=== PATIENT | male | born 1980 | race Caucasian/White ===

== ENCOUNTER 2022-04-14 00:06 | Emergency (ER) | payer MEDICAID, SELFPAY ==
[2022-04-14 00:48] VITALS: BP 147/82; PULSE 90; RESP 18; TEMP 36.7; O2SAT 95
--- NOTE | 2022-04-14 00:57 | NUR.NOTE ---
Nursing Note: pt was not triaged at time of registration because he needed a smoke,remained outside with officer. Pt cooperative at all time.
[2022-04-14 01:34] LABS: Abs Immature Grans 0.02 10^3/uL (0.0-0.06); Absolute Basophil Count 0.02 10^3/uL (0.0-0.2); Absolute Eosinophil Count 0.04 10^3/uL (0.0-0.7); Absolute Lymphocyte Count 1.84 10^3/uL (1.2-3.4); Absolute Neutrophil Count 3.87 10^3/uL (1.2-6.7); Basophils % 0.3; Eosinophils % 0.6; HCT 47.8 % (40.0-50.0); Immature Grans % 0.3; Lymphocytes % 27.9; MCH 29.1 pg (27.0-33.0); MCHC 33.5 % (32.0-36.0); MCV 87 fL (80-95); MPV 9.8 fL (8.0-11.0); Monocytes % 12.1; Neutrophils % 58.8; Platelet Count 227 10^3/uL (130-400); RBC 5.49 10^6/uL (4.36-5.78); RDW 11.9 % (11.8-14.1); RDW-SD 38.5 fL; WBC 6.59 10^3/uL (4.4-10.8)
[2022-04-14 01:50] LABS: *AMPHETAMINES SCREEN URINE Negative (Negative); *BARBITURATES SCREEN URINE Negative (Negative); *BENZODIAZEPINES SCREEN URINE Negative (Negative); Cannabinoids THC Positive (Negative); Cocaine Screen,Urine Negative (Negative); METHADONE URINE SCREEN Negative (Negative); OPIATES URINE SCREEN Negative (Negative)
[2022-04-14 01:51] LABS: Tricyclic Antidepressants Negative (Negative)
[2022-04-14 02:02] LABS: ALT 25 U/L (16-63); AST 18 U/L (15-37); Albumin 4.2 g/dL (3.4-5.0); Alkaline Phosphatase 67 U/L (46-116); Anion Gap 13.1 mmol/L (3-11); BUN 7 mg/dL (7-18); Bilirubin, Total 0.3 mg/dL (0.2-1.0); CO2 25.9 mmol/L (21.0-32.0); CREATININE 0.8 mg/dL (0.70-1.30); Calcium 8.9 mg/dL (8.5-10.1); Chloride 106 mmol/L (98-107); ETHANOL BLOOD 196.3 mg/dL (<10); Estimated GFR 114.02 (mL/min/1.73m2); Glucose 108 mg/dL (74-106); Potassium 3.8 mmol/L (3.5-5.1); Sodium 145 mmol/L (136-145); TSH (W/Ref FT4) 2.59 uIU/mL (0.36-3.74); Total Protein 7.8 g/dL (6.4-8.2)
[2022-04-14 02:06] LABS: Salicylate < 2.8 mg/dL (<2.8)
[2022-04-14 02:07] LABS: Acetaminophen < 2 ug/mL (10-30)
--- NOTE | 2022-04-14 03:19 | ED.GENADUL_ITS ---
Discharge Plan Discharge Details Chief Complaint: PsychEval Primary Care Provider: Shalonda Acosta ED Provider: Nathan Beard Medical Decision Making 41-year-old male who is new to the area who denies any focal past medical history but does state that he does have a history of mental health disorders which he states he would rather not have a specific label on. However he does state that he suspects that I have disassociative disorder, ADD, and stuff like that. He states that he does live alone and he drinks fairly often. He denies any history of withdrawal from alcohol though. A safety call was made for the patient today, mental health contacted the patient, and he promptly hung up on them, but states he did call back later to apologize. State police came to the house to check on the patient, and the patient was brought to the ER for further evaluation. Patient is here voluntarily. He denies homicidal or suicidal ideations but does state that his drinking seems to be fairly destructive. No other complaints at this time. He denies any IV or illicit drug use. Physical exam demonstrates a thin but otherwise well-appearing male. No acute distress. Does appear questionably mildly intoxicated. We will medically clear, contact mental health for further evaluation. Patient otherwise appears notably stable. He is here voluntarily. 8:21 AM Patient is medically cleared, patient is now clinically sober. The patient is able to speak clearly. There is no demonstration of any slurring of speech. There is evidence of clear decision making capacity. Patient is able to ambulate well without any difficulty. There are no signs of ataxia or stumbling motions. Patient will be signed out to my colleagues for follow-up on mental health assessment HPI General Date/Time Provider Initiated Documentation: 04/14/22 00:15 . HPI Narrative: 41-year-old male who is new to the area who denies any focal past medical history but does state that he does have a history of mental health disorders which he states he would rather not have a specific label on. However he does state that he suspects that I have disassociative disorder, ADD, and stuff like that. He states that he does live alone and he drinks fairly often. He denies any history of withdrawal from alcohol though. A safety call was made for the patient today, mental health contacted the patient, and he promptly hung up on them, but states he did call back later to apologize. State police came to the house to check on the patient, and the patient was brought to the ER for further evaluation. Patient is here voluntarily. He denies homicidal or suicidal ideations but does state that his drinking seems to be fairly destructive. No other complaints at this time. He denies any IV or illicit drug use. General Stated Complaint: PsychEval CARLOS: 2 Review of Systems All systems reviewed & are unremarkable except as noted in HPI and below PFSH Social History Smoking/Tobacco Use Status: Current every day Tobacco Type: cigarettes Smoking risk assessment performed?: Yes Alcohol Intake: current Alcohol Intake frequency: 3 or more drinks per day Alcohol type: beer Drug use: Occasionally Substance use type: marijuana Do you feel safe at home: Yes Exam Narrative Exam Narrative: 1.Const: Well-nourished, Well-developed, appearing stated age 2.Eyes: PERRL, no conjunctival injection, and symmetrical lids. 3.ENT: Atraumatic external nose and ears. Moist MM. Neck: Symmetric, trachea midline, No thyromegaly. 4.CVS: +S1/S2, No murmurs or gallops. Peripheral pulses 2+ and equal in all extremities. Brisk capillary refill in all extremities. 5.RESP: Unlabored respiratory effort. Clear to auscultation bilaterally. No wheezes rales or rhonchi 6.GI: Soft, Nontender/Nondistended, No hepatosplenomegaly. No guarding or rebou nd. 7.MSK: Normocephalic/Atraumatic, Extremities w/o deformity or ttp No cyanosis or clubbing, Normal movement of all extremities 8.Skin: Warm, Dry. No rashes or lesions. Small picking lesions are noted on his skin. 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 Sensation grossly intact, no focal neurologic deficits. 10.Psych: (AAO) x3. Appropriate mood and affect Course Vital Signs Vital signs: Vital Signs Temperature 36.7 C 04/14/22 00:48 Pulse 90 04/14/22 00:48 Respiratory Rate 18 04/14/22 00:48 Blood Pressure 147/82 H 04/14/22 00:48 Pulse Oximetry 95 04/14/22 00:48 Temperature 36.7 C 04/14/22 00:48 Temperature Source Oral 04/14/22 00:48 Pulse 90 04/14/22 00:48 Respiratory Rate 18 04/14/22 00:48 Respiratory Effort Normal 04/14/22 01:05 Blood Pressure 147/82 H 04/14/22 00:48 Blood Pressure Position Sitting 04/14/22 00:48 Pulse Oximetry 95 04/14/22 00:48 Oxygen Delivery Method Room Air 04/14/22 00:48 Oxygen Flow Rate 0 04/14/22 00:48 Lab/Test Results Lab/Test Results: Laboratory Tests Range/Units 04/14/22 04/14/22 04/14/22 01:28 01:28 01:28 WBC (4.4-10.8) 10^3/uL 6.59 RBC (4.36-5.78) 10^6/uL 5.49 Hgb (13.5-17.5) g/dL 16.0 Hct (40.0-50.0) % 47.8 MCV (80-95) fL 87 MCH (27.0-33.0) pg 29.1 MCHC (32.0-36.0) % 33.5 RDW (11.8-14.1) % 11.9 Plt Count (130-400) 10^3/uL 227 MPV (8.0-11.0) fL 9.8 Immature Gran % 0.3 Neutrophils % 58.8 Lymphocytes % 27.9 Monocytes % 12.1 Eosinophils % 0.6 Basophils % 0.3 Nucleated RBC % (0.0-0.3) % 0.0 Absolute Neutrophils (1.2-6.7) 10^3/uL 3.87 Absolute Lymphocytes (1.2-3.4) 10^3/uL 1.84 Absolute Monocytes (0.1-0.8) 10^3/uL 0.80 Absolute Eosinophils (0.0-0.7) 10^3/uL 0.04 Absolute Basophils (0.0-0.2) 10^3/uL 0.02 Sodium (136-145) mmol/L 145 Potassium (3.5-5.1) mmol/L 3.8 Chloride (98-107) mmol/L 106 Carbon Dioxide (21.0-32.0) mmol/L 25.9 Anion Gap (3-11) mmol/L 13.1 H BUN (7-18) mg/dL 7 Creatinine (0.70-1.30) mg/dL 0.8 Est GFR (CKD-EPI 2020) (mL/min/1.73m2) 114.02 Glucose (74-106) mg/dL 108 H Calcium (8.5-10.1) mg/dL 8.9 Total Bilirubin (0.2-1.0) mg/dL 0.3 AST (15-37) U/L 18 ALT (16-63) U/L 25 Alkaline Phosphatase (46-116) U/L 67 Total Protein (6.4-8.2) g/dL 7.8 Albumin (3.4-5.0) g/dL 4.2 TSH (0.36-3.74) uIU/mL 2.59 Salicylates (<2.8) mg/dL < 2.8 Urine Opiates Screen (Negative) Urine Methadone Screen (Negative) Acetaminophen (10-30) ug/mL < 2 Ur Barbiturates Screen (Negative) Ur Tricyclics Screen (Negative) Ur Amphetamines Screen (Negative) U Benzodiazepines Scrn (Negative) Urine Cocaine Screen (Negative) Ur THC Screen (Negative) Ethyl Alcohol (<10) mg/dL 196.3 H Range/Units 04/14/22 01:28 WBC (4.4-10.8) 10^3/uL RBC (4.36-5.78) 10^6/uL Hgb (13.5-17.5) g/dL Hct (40.0-50.0) % MCV (80-95) fL MCH (27.0-33.0) pg MCHC (32.0-36.0) % RDW (11.8-14.1) % Plt Count (130-400) 10^3/uL MPV (8.0-11.0) fL Immature Gran % Neutrophils % Lymphocytes % Monocytes % Eosinophils % Basophils % Nucleated RBC % (0.0-0.3) % Absolute Neutrophils (1.2-6.7) 10^3/uL Absolute Lymphocytes (1.2-3.4) 10^3/uL Absolute Monocytes (0.1-0.8) 10^3/uL Absolute Eosinophils (0.0-0.7) 10^3/uL Absolute Basophils (0.0-0.2) 10^3/uL Sodium (136-145) mmol/L Potassium (3.5-5.1) mmol/L Chloride (98-107) mmol/L Carbon Dioxide (21.0-32.0) mmol/L Anion Gap (3-11) mmol/L BUN (7-18) mg/dL Creatinine (0.70-1.30) mg/dL Est GFR (CKD-EPI 2020) (mL/min/1.73m2) Glucose (74-106) mg/dL Calcium (8.5-10.1) mg/dL Total Bilirubin (0.2-1.0) mg/dL AST (15-37) U/L ALT (16-63) U/L Alkaline Phosphatase (46-116) U/L Total Protein (6.4-8.2) g/dL Albumin (3.4-5.0) g/dL TSH (0.36-3.74) uIU/mL Salicylates (<2.8) mg/dL Urine Opiates Screen (Negative) Negative Urine Methadone Screen (Negative) Negative Acetaminophen (10-30) ug/mL Ur Barbiturates Screen (Negative) Negative Ur Tricyclics Screen (Negative) Negative Ur Amphetamines Screen (Negative) Negative U Benzodiazepines Scrn (Negative) Negative Urine Cocaine Screen (Negative) Negative Ur THC Screen (Negative) Positive A Ethyl Alcohol (<10) mg/dL PAWSS Have you Been Recently Intoxicated or Drunk Within the Last 30 days?: Yes Have you Ever Experienced Previous Episodes of Alcohol Withdrawal?: No Have you ever Experienced Withdrawal Seizures?: No Have you ever Experienced Delirium Tremens(DT)s?: No Have you ever undergone Alcohol Rehabilitation Treatment (i.e, inpt ot outpatient treatment programs)?: Yes Have you ever Experienced Blackouts?: No Have you ever Combined Alcohol with other Downers within the last 90 days?: No Have you ever Combined Alcohol with any other Substance of Abuse during the last 90 days?: No Positive Blood Alcohol level on Presentation? [PCS.BAL]: Yes Evidence of Increased Autonomic Activity (i.e. HR>120, tremor, sweating, agitation, nausea)?: No Result: 3
--- NOTE | 2022-04-14 08:08 | PDOC.MHCN_ITS ---
Date of service: 04/14/22 Time of Service: 08:08 PHQ-9 Over the last 2 weeks, how often have you been bothered by any of the following problems? 1. Little interest or pleasure in doing things: nearly every day 2. Feeling down, depressed, or hopeless: more than half the days 3. Trouble falling or staying asleep, or sleeping too much: nearly every day 4. Feeling tired or having little energy: more than half the days 5. Poor appetite or overeating: nearly every day (Ct reports he doesn't usually eat more than once a day.) 6. Feeling bad about yourself - or that you are a failure or have let yourself and your family down: nearly every day 7. Trouble concentrating on things, such as reading the newspaper or watching television: more than half the days 8. Moving or speaking so slowly that other people could have noticed? - Or the opposite - being so fidgety or restless that you have been moving around a lot more than usual: several days 9. Thoughts that you would be better off or of hurting yourself in some way: more than half the days Total score: 21 If you checked off any problems, how difficult have these problems made it for you to do your work, take care of things at home, or get along with other people?: very difficult PHQ-9 Results: Positive Source: Developed by Drs. Alvaro Gandhi, Loly Acuña, Narayan Villatoro and colleagues, with an educational ryland from [employer]. Suicide Severity Rate CSSRS Have you wished you were or wished you could go to sleep and not wake up?: Yes Have you actually had any thoughts of killing yourself?: Yes CSSRS2 Have you been thinking about how you might do this?: Yes Have you had these thoughts and had some intention of acting on them?: No Have you started to work out or worked out the details of how to kill yourself? Do you intend to carry out this plan?: No CSSRS3 Have you ever done anything, started to do anything or prepared to do anything to end your life?: No CSSRS4 Was this within the past three months?: No Screening Score Total Score: 4 Screening: Positive Mental Health Emergency Note Release [facility] release signed:: No Reason for Visit Ct reported he was struggling with his mental health and alcohol abuse. In the last 2 weeks has the pt presented for ES prior to today?: No Client Information Client is: New Well Housed: Yes Non Suicidal Self Injury Current: Yes, Client reports he constantly picks his skin and that he used to cut himself. History: yes, Client stated he used to engage in cutting but it has been years since doing that. Safety Risk/Harm to Self or Others Current Ideation to Harm Self or Others: No Risk: Does risk to harm exist?: No Risk: Moderate Risk Duty to warn indicated: No Asssessment/Mental Status Appearance: Disheveled and Poor hygiene Attitude: Cooperative Behavior: Unremarkable Speech: Normal Affect: Flat Mood: Sad and Anxious Thought process: Unremarkable Hallucinations: No evidence Delusions: No evidence Attention: Unremarkable Perception: Not impaired Orientation: Fully orientated Memory: Intact Insight: Fair Judgement: Fair Neurovegetative Symptoms Sleep: Decrease Appetitie: Decrease Interests: Decrease Energy: Decrease Substance Use: ETOH dependence Do you use nicotine?: Yes Have you used substances in the last 7 days?: yes, Client reports he uses marijuana; depending on if he has it he will use it everyday, if not it may be months. Additional Issues: Assaultive/Threatening Behavior: No Medical Concerns: Yes Client engaged in active self harm w/weapon: No Threatening to run away: No Child reported abuse/neglect: No Voluntarily presenting for services: Yes Domestic violence is a concern: No Extreme Psychosis or extreme behavior is present: No Impression Blayne was brought to the ED by [facility] due to erratic behavior, intoxication and suicidal statements. When Blayne arrived to the ED he was somewhat all over the place in terms of his thought process per the provider. His assessment was delayed until he was sober. This morning, Blayne was able to recall all his interactions with this clinician the previous afternoon, showing somewhat good recall and insight. This cilent stated that he has been struggling with his mental health for a while and has had fleeting thoughts of suicide since he was 12 years old, acting on them twice throughout his life (both by overdose). This client reported he has been to [facility] previously, about 4 years ago due to declining mental health. This client has an alcohol dependence and reports he has been abusing it for 3.5-4 years. Blayne stated he drinks anywhere from 12-16 beers roughly every other night, but most weeks its nightly. This client stated he doesn't want to end his life by suicide but feels he needs additional support with his mental health and alcohol abuse. This client had some interest in crisis beds and level care but wants to figure out how to navigate doing so around work. Client requested meeting with a recovery operator helper from [facility] as well, to see what resources were available to him in that sphere. Resources Reosurces reviewed and given:: Crisis Bed and HS Plan/Disposition Recommended Disposition: Crisis bed, No and Hospitalization No. Reports/communication Outcome discussed with: ED/Personnel
--- NOTE | 2022-04-14 17:34 | MHPN_ITS ---
Date of service: 04/14/22 Time of Service: 17:34 PHQ-9 Over the last 2 weeks, how often have you been bothered by any of the following problems? 1. Little interest or pleasure in doing things: nearly every day 2. Feeling down, depressed, or hopeless: more than half the days 3. Trouble falling or staying asleep, or sleeping too much: nearly every day 4. Feeling tired or having little energy: more than half the days 5. Poor appetite or overeating: nearly every day (Ct reports he doesn't usually eat more than once a day.) 6. Feeling bad about yourself - or that you are a failure or have let yourself and your family down: nearly every day 7. Trouble concentrating on things, such as reading the newspaper or watching television: more than half the days 8. Moving or speaking so slowly that other people could have noticed? - Or the opposite - being so fidgety or restless that you have been moving around a lot more than usual: several days 9. Thoughts that you would be better off or of hurting yourself in some way: more than half the days Total score: 21 If you checked off any problems, how difficult have these problems made it for you to do your work, take care of things at home, or get along with other people?: very difficult PHQ-9 Results: Positive Source: Developed by Drs. Alvaro Gandhi, Loly Acuña, Narayan Villatoro and colleagues, with an educational ryland from [employer]. Suicide Severity Rate CSSRS Have you wished you were or wished you could go to sleep and not wake up?: Yes Have you actually had any thoughts of killing yourself?: Yes CSSRS2 Have you been thinking about how you might do this?: Yes Have you had these thoughts and had some intention of acting on them?: No Have you started to work out or worked out the details of how to kill yourself? Do you intend to carry out this plan?: No CSSRS3 Have you ever done anything, started to do anything or prepared to do anything to end your life?: No CSSRS4 Was this within the past three months?: No Screening Score Total Score: 4 Screening: Positive Mental Health Emergency Note Release [facility] release signed:: Yes Reason for Visit Client presented to the ED on the evening of 3.6.23 intoxicated and looking for help with his ETOH use/abuse. He was initially assessed by MELISSA Hathaway who referred him to [facility] as he was not interested in in an inpatient referral. [facility] also reported to this clinician that he was not interested in a rehab but offered to be supportive to him for the next 10 days. This assessment was completed face to face. In the last 2 weeks has the pt presented for ES prior to today?: Unknown Client Information Client is: New Well Housed: Yes Non Suicidal Self Injury Current: Yes, Picks at skin History: yes, same as above Safety Risk/Harm to Self or Others Current Ideation to Harm Self or Others: No Risk: Does risk to harm exist?: No Risk: Low Risk Duty to warn indicated: No Asssessment/Mental Status Appearance: Poor hygiene (has only showered 4 times since Thanksgi ) Attitude: Cooperative and Guarded Behavior: Repetitive movements (Rubs his head and hair frequently ) Speech: Soft Affect: Cogruent with mood Mood: Stressed, Depressed and Anxious Thought process: Circumstational Hallucinations: No Delusions: No Attention: Unremarkable Perception: Not impaired Orientation: Fully orientated Memory: Intact Insight: Good Judgement: Fair Neurovegetative Symptoms Sleep: Decrease Appetitie: Decrease Interests: Decrease Energy: Decrease Libido: Not applicable Substance Use: ETOH dependence Do you use nicotine?: No Have you used substances in the last 7 days?: yes, ETOH Additional Issues: Assaultive/Threatening Behavior: No Medical Concerns: No Client engaged in active self harm w/weapon: No Threatening to run away: No Child reported abuse/neglect: No Voluntarily presenting for services: No Domestic violence is a concern: No Extreme Psychosis or extreme behavior is present: No Impression Client is a 41 year old, single, male who lives independently in a cabin in the [facility]. Client reports that he drinks heavily daily and that he is struggling with his mental health. Client stated that he has issues with his anger, social settings, poor sleep and appetite (limited food options as well noting primarily cheese sandwiches) He has been involved with the [facility] and was encouraged to continue with them. He previously had been [facility] through his PCP however he stopped seeing her. He reported that when he was at [facility] he felt is was unhelpful because he felt he was put on medications and pushed out the door. Client presents sitting up in his bed this morning and his hair is oily and has not been washed in some time. Client reported that he does not have running water in his cabin. His speech is rapid and circumstantial often. He has a hard time stringing his thoughts together as well. Client believes that he is diagnosed with ADD since childhood and did do a trial of ADD meds however, he felt like that made him manic. He has had some success on other meds but not for long periods of time. This has been frustrating for him. It is this clinician's professional observation and opinion that he client may have a bipolar diagnosis and he appears to be in a manic type episode mixed with an on going depression. He disagrees with this observation when discussed. Client also isolates himself to his cabin with the exception of store runs and medical appointments, a couple of friends he will visit on occasion and work. It appears the client has not committed to treatment and especially not intensive treatment at this time and does not meet criteria for an involuntary hold. Resources Reosurc reviewed and given:: Community therapist Plan/Disposition Recommended Disposition: Therapy. Plan: Client engaged in opening paperwork and a safety plan. Client will be discharged home to follow up with supports already in place. He was made aware of [facility] and [facility] should he need additional supports and services. Person reported agreement to plan: Yes Reports/communication Outcome discussed with: ED/Personnel
== END 2022-04-14 11:34 | disposition home or self-care (01) ==
PROVIDERS: Student in an Organized Health Care Education/Training Program; Emergency Provider Emergency Medicine; PCP Nurse Practitioner Family
DX: F10.920 Alcohol use, unspecified with intoxication, uncomplicated (principal); Z04.6 Encounter for general psychiatric examination, requested by authority; Y90.6 Blood alcohol level of 120-199 mg/100 ml
CPT/HCPCS: 36415; 80053; 80307; 99283; 99285; 80320; 80329; 84443; 85025

== ENCOUNTER 2022-04-16 18:37 | Emergency (ER) | payer MEDICAID, SELFPAY ==
[2022-04-16 18:49] VITALS: BP 125/87; PULSE 91; RESP 18; TEMP 36.8; O2SAT 96
--- NOTE | 2022-04-16 19:42 | ED.GENADUL_ITS ---
Discharge Plan Disposition Condition: Stable Discharge Details Chief Complaint: PsychEval Clinical Impression: Depression Primary Care Provider: Shalonda Acosta ED Provider: Asael Garcia Home Meds and New Rx's Prescriptions: No Action No Known Home Meds Medical Decision Making 41 yo male with hx of alcohol abuse who comes in with [facility] and mental health worker with concerns for his safety. He has a chronic issue with alcohol abuse and was seen in the ed 2 days ago with depression and vague thoughts of SI while intoxicated, when sober was cleared to go home. He apparently has been drinking alcohol and [facility] did not feel he was safe at home so brought him here. HE is caox4 though does have smell of alcohol on his breath and admits to drinking tonight. He denies other substance use other than marijuana. He denies attempts at actually trying to harm himself. HE has no focal motor deficits and no signs of trauma. He had reassuring screening labs on 04/14 and do not feel they need to be repeated, will check an alcohol level and have nkhs speak to him when sober. Differential Diagnosis Differential Diagnosis: alcohol intoxication, depression HPI General Mode of arrival: ambulatory . Date/Time Provider Initiated Documentation: 04/16/22 19:01 . Limitations to Documentation: no limitations . Information obtained by: patient and police . History of Present Illness 41 year old M presents to the emergency department with the chief complaint of alcohol abuse, described as moderate, and it has been constant. No relieving factors improve symptom(s), No exacerbating factors reported . Patient did receive the following treatments prior to arrival, none Related Data Home Medications Medication Instructions Recorded Confirmed Unknown [No Known Home Meds] 04/16/22 04/16/22 Allergies Allergy/AdvReac Type Severity Reaction Status Date / Time No Known Allergies Allergy Unverified 04/16/22 18:53 General Stated Complaint: PsychEval CARLOS: 2 Review of Systems All systems reviewed & are unremarkable except as noted in HPI and below Constitutional Constitutional: Denies chills, Denies fever(s) and Denies weakness Eyes Eyes: Denies loss of vision Cardiovascular Cardiovascular: Denies chest pain and Denies dyspnea Respiratory Respiratory: Denies cough and Denies dyspnea Gastrointestinal Gastrointestinal: Denies abdominal pain, Denies nausea and Denies vomiting Integumentary/Breasts Skin/Breast: Denies rash Neurologic Neurologic: Denies loss of vision and Denies weakness PFSH All Active Problems (Updated 04/16/22 @ 19:50 by Asael Garcia MD) Depression (Chronic) Social History Smoking/Tobacco Use Status: Current every day Tobacco Type: cigarettes Smoking risk assessment performed?: Yes Alcohol Intake: current Alcohol Intake frequency: 3 or more drinks per day Alcohol type: beer Drug use: Occasionally Substance use type: marijuana Exam Const General: no acute distress Orientation: alert HENMT Head: normal to inspection Ears: external ears normal General nose exam: external nose normal Mouth: moist mucous membranes Eyes General: appearance normal, both eyes and all related structures Neck Neck: normal visual inspection Resp Effort & Inspection: normal respiratory effort and able to speak in complete sentences Cardio Rate: regular rate Skin General skin exam: no rashes or lesions noted Neuro General: patient alert and patient oriented x3 Extrem General: normal to inspection Psych Appearance: disheveled Speech and Movement: agitated Course Vital Signs Vital signs: Vital Signs Temperature 36.8 C 04/16/22 18:49 Pulse 91 H 04/16/22 18:49 Respiratory Rate 18 04/16/22 18:49 Blood Pressure 125/87 04/16/22 18:49 Pulse Oximetry 96 04/16/22 18:49 Temperature 36.8 C 04/16/22 18:49 Temperature Source Tympanic 04/16/22 18:49 Pulse 91 H 04/16/22 18:49 Respiratory Rate 18 04/16/22 18:49 Respiratory Effort Normal, Non-Labored 04/16/22 18:52 Blood Pressure 125/87 04/16/22 18:49 Pulse Oximetry 96 04/16/22 18:49 Oxygen Delivery Method Room Air 04/16/22 18:49 Oxygen Flow Rate 0 04/16/22 18:49 PAWSS Have you Been Recently Intoxicated or Drunk Within the Last 30 days?: Yes Have you Ever Experienced Previous Episodes of Alcohol Withdrawal?: Yes Have you ever Experienced Withdrawal Seizures?: No Have you ever Experienced Delirium Tremens(DT)s?: No Have you ever undergone Alcohol Rehabilitation Treatment (i.e, inpt ot outpatient treatment programs)?: Yes Have you ever Experienced Blackouts?: No Have you ever Combined Alcohol with other Downers within the last 90 days?: No Have you ever Combined Alcohol with any other Substance of Abuse during the last 90 days?: No Positive Blood Alcohol level on Presentation? [PCS.BAL]: Unable to Obtain Evidence of Increased Autonomic Activity (i.e. HR>120, tremor, sweating, agitation, nausea)?: No Result: 3
--- NOTE | 2022-04-16 20:01 | NUR.NOTE ---
Nursing Note: Pt left ED in police custody to detox. Dr Radha echavarria.
== END 2022-04-16 20:09 ==
PROVIDERS: Emergency Provider Emergency Medicine; PCP Nurse Practitioner Family
DX: F32.A Depression, unspecified (principal); F10.10 Alcohol abuse, uncomplicated; Y90.9 Presence of alcohol in blood, level not specified
CPT/HCPCS: 99284; 80320; 99282

== ENCOUNTER 2022-04-17 10:06 | Emergency (ER) | payer MEDICAID, SELFPAY ==
[2022-04-17] VITALS (22 sets, daily range): BP systolic 117–150; BP diastolic 65–114; PULSE 69–108; RESP 12–19; TEMP 36.7; O2SAT 97–99
--- NOTE | 2022-04-17 11:49 | PDOC.MHCN ---
Date of service: 04/17/22 Time of Service: 11:49 PHQ-9 Over the last 2 weeks, how often have you been bothered by any of the following problems? 1. Little interest or pleasure in doing things: nearly every day 2. Feeling down, depressed, or hopeless: more than half the days 3. Trouble falling or staying asleep, or sleeping too much: nearly every day 4. Feeling tired or having little energy: more than half the days 5. Poor appetite or overeating: nearly every day (Ct reports he doesn't usually eat more than once a day.) 6. Feeling bad about yourself - or that you are a failure or have let yourself and your family down: nearly every day 7. Trouble concentrating on things, such as reading the newspaper or watching television: more than half the days 8. Moving or speaking so slowly that other people could have noticed? - Or the opposite - being so fidgety or restless that you have been moving around a lot more than usual: several days 9. Thoughts that you would be better off or of hurting yourself in some way: more than half the days Total score: 21 If you checked off any problems, how difficult have these problems made it for you to do your work, take care of things at home, or get along with other people?: very difficult PHQ-9 Results: Positive Source: Developed by Drs. Alvaro Gandhi, Loly Acuña, Narayan Villatoro and colleagues, with an educational ryland from [employer]. Suicide Severity Rate CSSRS Have you wished you were or wished you could go to sleep and not wake up?: Yes Have you actually had any thoughts of killing yourself?: Yes CSSRS2 Have you been thinking about how you might do this?: Yes Have you had these thoughts and had some intention of acting on them?: No Have you started to work out or worked out the details of how to kill yourself? Do you intend to carry out this plan?: No CSSRS3 Have you ever done anything, started to do anything or prepared to do anything to end your life?: Yes CSSRS4 Was this within the past three months?: No Screening Score Total Score: 6 Screening: Positive Mental Health Emergency Note Release [facility] release signed:: No Reason for Visit Ct presented to the ED due to a decline in mental state, increased alcohol dependence & SI. Blayne reports he would like to access mental health services. In the last 2 weeks has the pt presented for ES prior to today?: Yes, presented at [facility] ED Client Information Client is: New Well Housed: Yes Non Suicidal Self Injury Current: No History: yes, Client reported he has engaged in cutting previously. Safety Risk/Harm to Self or Others Current Ideation to Harm Self or Others: Yes to self. Intent: no, has no intent. Plan: yes,has a plan. History of suicide attempt: yes,history of suicide attempt reported. Details of previous suicide attempt: Client has overdosed twice previously. Risk: Does risk to harm exist?: yes. Access to means: Yes. Types of Means: Medication. Counseling provided: Yes Risk: Moderate Risk Duty to warn indicated: No Asssessment/Mental Status Appearance: Disheveled and Poor hygiene Attitude: Cooperative Behavior: Unremarkable Speech: Normal Affect: Flat Mood: Stressed and Anxious Thought process: Racing and Tangential Hallucinations: No Delusions: No Attention: Unremarkable Perception: Not impaired Orientation: Fully orientated Memory: Intact Insight: Fair Judgement: Poor Neurovegetative Symptoms Sleep: Decrease Appetitie: Decrease Interests: Decrease Energy: Decrease Substance Use: ETOH dependence Do you use nicotine?: No Have you used substances in the last 7 days?: yes, Client reports frequent usage of marijuana when available. Additional Issues: Assaultive/Threatening Behavior: Yes Medical Concerns: No Client engaged in active self harm w/weapon: No Threatening to run away: No Child reported abuse/neglect: No Voluntarily presenting for services: Yes Domestic violence is a concern: No Extreme Psychosis or extreme behavior is present: No Impression Blayne presented to the ED due to concerns around worsening mental health, alcohol abuse and SI. This client was fairly tangential throughout the assessment, often either giving this clinician unclear/inconsistent answers to assessment questions. Blayne has been all over the place in regards to his mental health and suicidal ideation, last night stating that 98% of him wants to do it and that he has the means (To [facility] [place] [place] [employer]) but then later telling a doctor he isn't suicidal; showing poor judgement, insight and disordered thought process. Today, Blayne continued to provide contradicting reports, although he is willing to seek voluntary treatment to stabilize. For some more clarity on this ct's case, this clinician gathered information from his interactions with [facility] ES & [facility] beginning this week: On the evening of 04/13/2022, [facility] Police ([facility]) received a call from a concerned community member requesting a welfare check on Raffy. At this time, there were concerns for Raffy and his mental health. Per the complainant, Raffy was reported to be drinking heavily and operating a vehicle. [facility] requested [facility] quality control tech raw materials to reach out and attempt to make contact with the client regarding his mental health. When MELISSA Hathaway attempted to outreach to the client, the client was reported to present as paranoid and refused to speak to mental health. After being medically cleared and having been clinically sober, Raffy was assessed by [facility] MELISSA Hathaway and then MELISSA Boyer on the morning of 04/14/2022. At this time, the client denied recommended inpatient treatment and returned home on a safety plan. On 04/15/22 [facility] received another welfare check on Raffy for reports of ?self-destructive behaviors? with a history of ?self-harm attempts?. The following day 04/16/22, [facility] received a third welfare check on Raffy, requested by his PCP office. Sury Tello arrived on scene, and Raffy reported to be still struggling with his mental health and requested to be transported to [facility] via police after stating, ?I?m not well?I?m really not well?. At this time, Raffy was under the influence of alcohol, but was able to have a coherent conversation. It appears that the clients behavior and risk to self has increased over the past several days, and he does not seem to be reporting honestly. Resources Reosurces reviewed and given:: Crisis Bed and Other (Brigette Myers (Community provider Blayne was previously connected to)) Plan/Disposition Recommended Disposition: Hospitalization (Referrals will be sent shortly.) No. Plan: Client is agreeable to IP treatment. Person reported agreement to plan: Yes Reports/communication Outcome discussed with: ED/Personnel
--- NOTE | 2022-04-17 15:11 | ED.GENADUL_ITS ---
Discharge Plan Discharge Details Chief Complaint: GenMedical Primary Care Provider: Shalonda Acosta ED Provider: Dewayne Trotter Home Meds and New Rx's Prescriptions: No Action No Known Home Meds Medical Decision Making [id number]--41-year-old male presents today at the [facility] after being held overnight in [facility], seeking treatment for alcohol use disorder. Patient does have history of mental health disease but is not currently suicidal, homicidal or acutely psychotic. Of recent, patient has had erratic behavior while abusing alcohol. He recognizes this and is voluntarily here seeking treatment. Patient medically screened and I am concerned about potential alcohol withdrawal. He is not exhibiting any significant signs or symptoms of withdrawal at this time. We will maintain [facility] protocol observation. Care management is working with [facility] to develop either a safety plan for discharge and outpatient referral versus referral to [facility] for inpatient treatment. Awaiting disposition plan. I called and spoke with [facility] livestock judging coach who came in engaged with the patient. She has a previously established relationship with the patient from earlier this week. She will continue to follow and assist patient in the outpatient setting. Smart medical clearance was performed. HPI General Mode of arrival: ambulatory . Date/Time Provider Initiated Documentation: 04/17/22 10:11 . Limitations to Documentation: no limitations . Information obtained by: patient . HPI Narrative: 41-year-old male presents seeking alcohol use disorder treatment. Patient notes he was seen here last night for alcohol intoxication and discharged to [facility] where he was monitored overnight. He was let go from center this morning, seen by [facility] and advised to come to the emergency department for crisis evaluation. Patient does suffer from mental health conditions which he does not like labeling. He states that he is not suicidal or homicidal. He does have paranoia at times but has no hallucinations. Patient admits to consuming heavy amount of alcohol recently and has had erratic behavior while intoxicated. He is interested in voluntary placement for treatment of alcohol use disorder. Patient notes that he typically does not have severe withdrawal when he stopped consuming alcohol. He states that usually on day 2-3 he just generally does not feel well. He has had no tremor or seizure activity in the past. Related Data Home Medications Medication Instructions Recorded Confirmed Unknown [No Known Home Meds] 04/16/22 04/17/22 Allergies Allergy/AdvReac Type Severity Reaction Status Date / Time No Known Allergies Allergy Unverified 04/17/22 10:15 General Stated Complaint: GenMedical CARLOS: 3 Review of Systems All systems reviewed & are unremarkable except as noted in HPI and below Constitutional Constitutional: Denies fever(s) Cardiovascular Cardiovascular: Denies chest pain PFSH All Active Problems Depression (Chronic) Social History Smoking/Tobacco Use Status: Current every day Tobacco Type: cigarettes Smoking risk assessment performed?: Yes Alcohol Intake: current Alcohol Intake frequency: 3 or more drinks per day Alcohol type: beer Drug use: Occasionally Substance use type: marijuana Exam Const General: cooperative and no acute distress HENMT Head: normocephalic and atraumatic Mouth: moist mucous membranes Eyes Conjunctivae: normal conjunctivae Sclera: normal sclerae Neck Neck: trachea midline and supple Resp Auscultation: clear to auscultation bilaterally, no rales, no rhonchi and no wheezes Cardio Rate: regular rate and not tachycardic Rhythm: regular rhythm GI Palpation: soft, not firm, no guarding, no masses, not rigid and nontender Skin General skin exam: no rashes or lesions noted Neuro General: patient alert, patient awake and tone normal Cognition: normal cognition Speech: speech normal Other: No tremor, no seizure Extrem General: no edema Psych Appearance: grossly normal Mental Status: mental status grossly normal Course Vital Signs Vital signs: Vital Signs Temperature 36.7 C 04/17/22 10:11 Pulse 108 H 04/17/22 10:11 Respiratory Rate 18 04/17/22 10:11 Blood Pressure 143/83 H 04/17/22 10:11 Pulse Oximetry 99 04/17/22 10:11 Temperature 36.7 C 04/17/22 10:11 Temperature Source Temporal Artery Scan 04/17/22 10:11 Pulse 80 04/17/22 14:43 Respiratory Rate 18 04/17/22 14:43 Respiratory Effort Normal, Non-Labored 04/17/22 10:59 Respiratory Depth Normal 04/17/22 10:59 Respiratory Pattern Normal 04/17/22 11:35 Blood Pressure 124/75 04/17/22 14:43 Pulse Oximetry 98 04/17/22 14:43 Oxygen Delivery Method Room Air 04/17/22 14:43 Oxygen Flow Rate 0 04/17/22 14:43 PAWSS Have you Been Recently Intoxicated or Drunk Within the Last 30 days?: Yes Have you Ever Experienced Previous Episodes of Alcohol Withdrawal?: Yes Have you ever Experienced Withdrawal Seizures?: No Have you ever Experienced Delirium Tremens(DT)s?: No Have you ever undergone Alcohol Rehabilitation Treatment (i.e, inpt ot outpatient treatment programs)?: No Have you ever Experienced Blackouts?: Yes Have you ever Combined Alcohol with other Downers within the last 90 days?: No Have you ever Combined Alcohol with any other Substance of Abuse during the last 90 days?: Yes Positive Blood Alcohol level on Presentation? [PCS.BAL]: No Evidence of Increased Autonomic Activity (i.e. HR>120, tremor, sweating, natanael tation, nausea)?: Yes Result: 6
--- NOTE | 2022-04-17 16:10 | NUR.NOTE ---
Case management down to see pt, she reports Chong from from [facility] crisis team reporting SI complaints from pt. Pt has denied all SI to this RN. This RN confirmed with MD Trotter that pt was denying and continues to deny SI. Case management spoke with pt and per nurse case manager pt continues to deny SI.
--- NOTE | 2022-04-17 16:34 | PDOC.ERCMPRO ---
- If Service Date Differs Date of service: 04/17/22 Time of Service: 16:34 Care Management Progress Note CM asked to see patient in the ED. Raffy is a 41 year old man who presented to the ED this morning after being released from correction for intoxication. He is seeking treatment for his alcohol use disorder. He was screened by [facility] crisis screener Chong and was felt to meet criteria for inpatient psychiatric hospitalization. CM met with Raffy who repeatedly denied SI/HI. Per ED provider and nurse, he has been denying both all day to them as well. He explained to CM that he does not want to kill himself but that he has self-destructive behavior with his drinking.
--- NOTE | 2022-04-17 17:40 | W.EDPROG ---
Date of service: 04/17/22 Time of Service: 17:40 Medical Decision Making pt seeking voluntary placement for self destructive behavior, no issues during previous shift and calm and cooperative now. Sign Out Sign Out Data: Sign Out Comment: Awaiting disposition pending care management and [facility] human services planning. Last updated by Dewayne Trotter MD at 04/17/22 17:29 Discharge Plan Discharge Details Chief Complaint: GenMedical Primary Care Provider: Shalonda Acosta ED Provider: Asael Garcia Home Meds and New Rx's Prescriptions: No Action No Known Home Meds
--- NOTE | 2022-04-17 18:28 | NUR.NOTE ---
pt calling friends for potential discharge with safety plan
--- NOTE | 2022-04-17 18:38 | NUR.NOTE ---
[facility] Police brought pts belongings to hospital. Belongings given to pt.
--- NOTE | 2022-04-17 18:51 | NUR.NOTE ---
Addendum entered by Chente Samayoa RN 04/17/22 18:55: pt also has been exhibiting a clear thought process Original Note: per Beronica from [facility] pt will no longer be discharged with safety plan but instead will be held in ED for inpatient psych bed. Per Beronica and her team she claims that pt is currently manic. This RN disagrees with assessment. Pt has not exhibited any manic behavior while under my care. He has been calm, cooperative and resting in bed all day.
--- NOTE | 2022-04-17 20:08 | NUR.NOTE ---
Nursing Note: Patient states that everything is fine but that he would like something to eat, this RN gave him a PB&J bonifaciowhich with sunchips. No other needs noted at this time.
--- NOTE | 2022-04-17 21:00 | NUR.NOTE ---
Nursing Note: Pt out of the room to use the restroom, RN awoke pt when doing a rounding. Warm blanket provided and light turned off. No other needs noted at this time
--- NOTE | 2022-04-17 23:56 | NUR.NOTE ---
Nursing Note: patient resting on side, appears to be asleep. No concerns noted at this time.
--- NOTE | 2022-04-18 02:10 | NUR.NOTE ---
Nursing Note: Pt is asleep on side, no concerns noted at this time
--- NOTE | 2022-04-18 04:21 | NUR.NOTE ---
Nursing Note: Patient resting on side, no needs noted at this time
--- NOTE | 2022-04-18 05:29 | NUR.NOTE ---
Nursing Note: Pt asleep on side with no concerns apparent.
--- NOTE | 2022-04-18 06:21 | NUR.NOTE ---
Nursing Note:Pt curled up in a ball on the bed and asleep, no concerns noted at this time.
[2022-04-18 07:21] VITALS: BP 128/91; PULSE 82; RESP 20; TEMP 36.5; O2SAT 98
--- NOTE | 2022-04-18 07:24 | NUR.NOTE ---
Addendum entered by Nolvia Barton RN 04/18/22 07:37: When patient was given breakfast menu he stated that all the stuff on the paper was overwhelming. he could read the words but he states being overstimulated by all the choices, patient did end up picking out his own meal off the menu. patient is very talkative. Original Note: Nursing Note: patient is awake and states he is not suicidal, but has been on a self destructive tear. states his mental health has been on a decline and states his grasp of reality is not there. states identity and disassociative stuff going on. states not eating or sleeping much.
--- NOTE | 2022-04-18 08:59 | NUR.NOTE ---
Nursing Note: patient ate 100% of his breakfast. patient asked for something to read, 3 novels given to patient from [facility]. patient is sitting in room reading quietly.
--- NOTE | 2022-04-18 11:29 | MHPN_ITS ---
Date of service: 04/18/22 Time of Service: 11:29 PHQ-9 Over the last 2 weeks, how often have you been bothered by any of the following problems? 1. Little interest or pleasure in doing things: nearly every day 2. Feeling down, depressed, or hopeless: more than half the days 3. Trouble falling or staying asleep, or sleeping too much: nearly every day 4. Feeling tired or having little energy: more than half the days 5. Poor appetite or overeating: nearly every day (Ct reports he doesn't usually eat more than once a day.) 6. Feeling bad about yourself - or that you are a failure or have let yourself and your family down: nearly every day 7. Trouble concentrating on things, such as reading the newspaper or watching television: more than half the days 8. Moving or speaking so slowly that other people could have noticed? - Or the opposite - being so fidgety or restless that you have been moving around a lot more than usual: several days 9. Thoughts that you would be better off or of hurting yourself in some way: more than half the days Total score: 21 If you checked off any problems, how difficult have these problems made it for you to do your work, take care of things at home, or get along with other people?: very difficult PHQ-9 Results: Positive Source: Developed by Drs. Alvaro Gandhi, Loly Acuña, Narayan Villatoro and colleagues, with an educational ryland from [employer]. Suicide Severity Rate CSSRS Have you wished you were or wished you could go to sleep and not wake up?: Yes Have you actually had any thoughts of killing yourself?: Yes CSSRS2 Have you been thinking about how you might do this?: Yes Have you had these thoughts and had some intention of acting on them?: No Have you started to work out or worked out the details of how to kill yourself? Do you intend to carry out this plan?: No CSSRS3 Have you ever done anything, started to do anything or prepared to do anything to end your life?: Yes CSSRS4 Was this within the past three months?: No Screening Score Total Score: 6 Screening: Positive Mental Health Emergency Note Release [facility] release signed:: Yes Reason for Visit Ct presented to the ED due to a decline in mental state, increased alcohol dependence & SI. Blayne reports he would like to access mental health services. Today client is assessed face to face. In the last 2 weeks has the pt presented for ES prior to today?: Yes, presented at [facility] ED Client Information Client is: New Well Housed: Yes Non Suicidal Self Injury Current: No History: No Safety Risk/Harm to Self or Others Current Ideation to Harm Self or Others: No Risk: Does risk to harm exist?: yes. Access to means: Yes. Types of Means: Other. Counseling provided: Yes Risk: Moderate Risk Duty to warn indicated: No Asssessment/Mental Status Appearance: Poor hygiene Attitude: Cooperative Behavior: Unremarkable Speech: Normal Affect: Flat Mood: Stressed, Depressed and Anxious Thought process: Flight of ideas, Circumstational, Tangential and Poverty of content Hallucinations: No Delusions: No Attention: Inattention Perception: Not impaired Orientation: Fully orientated Memory: Impaired in: Recent Insight: Fair Judgement: Fair Neurovegetative Symptoms Sleep: Decrease Appetitie: Decrease Interests: Decrease Energy: Decrease Libido: Not applicable Substance Use: ETOH dependence Do you use nicotine?: No Have you used substances in the last 7 days?: yes, ETOH Additional Issues: Assaultive/Threatening Behavior: No Medical Concerns: No Client engaged in active self harm w/weapon: No Threatening to run away: No Child reported abuse/neglect: No Voluntarily presenting for services: Yes Domestic violence is a concern: No Extreme Psychosis or extreme behavior is present: No Impression Client is a 41 year old, single, male who lives independently in a cabin in the [facility]. Client reports that he drinks heavily daily and that he is struggling with his mental health. Client stated that he has issues with his anger, social settings, poor sleep and appetite (limited food options as well noting primarily cheese sandwiches) He has been involved with the [facility] and was encouraged to continue with them. He previously had been seeing Emi Carpio at [facility] through his PCP however he stopped seeing her. He reported that when he was at [facility] he felt is was unhelp ful because he felt he was put on medications and pushed out the door.?CLient would like where ever he goes to have conversations with Emi as he trusts her and she has his history. Client reported no sleep last night. Client described his mood as one minute he is okay, then he is angry and then he feel like I am in a pigeion hole in a box. He stated that he is having a hard time believing the things that have happened over the last few days. He stated that he feels he is getting mixed messages from professionals and the way he described it sounds accurate i.e. he was screened on by MELISSA Hathaway and placement was being sought, then he was being told by a nurse that placement would take a week or more and then he was being safety planned to go home and was given a phone and then at approximately 8pm last night he was given a blanket and he went to sleep. This has been a lot for him to deal with and process when he stated that he struggles to process anything now. His current nurse reported that he was given a breakfast menu this am and he returned it to her stating this is too overstimulating. He stated that he needs people to stop telling him he has depression because the client does not believe that is all that is going on. He described that his mind feels like one side is running wild like there is a mouse in a wheel in t here and the other side is a sleeping dormant mouse. He does report that if he were to walk out of the ED today he would be lost and feel as if he could not function again and this is scary for him my mind is all over the place I can easily make a mole hill into a mountain. I feel like my processing receptors are not firing right. 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 This is the first time he has mentioned this in the last couple of days. He ends the discussion with If I keep doing what I am doing, I am going to end up . Not because of SI but because I cant continue like this. Plan/Disposition Recommended Disposition: PCP/Office visit and Hospitalization facilities contacted. Plan: Client will remain on voluntary placement at [facility] until placement is found or until he is able to safely safety plan home. He will be reassessed daily by [facility]. Person reported agreement to plan: Yes Facilities contacted if Applicable [facility] Not accepted, No bed available [facility] Not accepted, No bed available [facility] Not accepted, No bed available, [facility] Not accepted, No bed available Reports/communication Outcome discussed with: ED/Personnel
--- NOTE | 2022-04-18 13:57 | NUR.NOTE ---
Nursing Note: patient is in bed reading books provided by this nurse. patient ate most of his lunch.
--- NOTE | 2022-04-18 14:19 | CMPROGNOTE_ITS ---
- If Service Date Differs Date of service: 04/18/22 Time of Service: 14:19 Care Management Progress Note RAUL spoke with Beronica [facility] who noted that Raffy is voluntarily seeking dual diagnosis co-occuring treatment for RENA and MH. Beronica advises that all the hospitals provide co-occuring treatment. Raffy presented to the ED this morning after being released from intermediate for intoxication. He is seeking treatment for his alcohol use disorder. He was screened by [facility] crisis screener Chong and was felt to meet criteria for inpatient psychiatric hospitalization, Beronica's evaluation is in line with this plan as well. Appears patient returned home on a safety plan 04/14/22 and required emergent intervention consistently leading up to ED admission. Raffy has not identified self harm or homicidal behavior to [facility] staff at this time, however it does appear his reporting is not consistent ([facility]) and he does have significant history including two attempts where he overdosed, per [facility] Screener Chong's documentation.
--- NOTE | 2022-04-18 14:19 | PDOC.ERCMPRO ---
- If Service Date Differs Date of service: 04/18/22 Time of Service: 14:19 Care Management Progress Note RAUL spoke with Beronica [facility] who noted that Raffy is voluntarily seeking dual diagnosis co-occuring treatment for RENA and MH. Beronica advises that all the hospitals provide co-occuring treatment. Raffy presented to the ED this morning after being released from care home for intoxication. He is seeking treatment for his alcohol use disorder. He was screened by [facility] crisis screener Chong and was felt to meet criteria for inpatient psychiatric hospitalization, Beronica's evaluation is in line with this plan as well. Appears patient returned home on a safety plan 04/14/22 and required emergent intervention consistently leading up to ED admission. Raffy has not identified self harm or homicidal behavior to [facility] staff at this time, however it does appear his reporting is not consistent ([facility]) and he does have significant history including two attempts where he overdosed, per [facility] Screener Chong's documentation.
--- NOTE | 2022-04-18 16:09 | NUR.NOTE ---
Nursing Note: patient continues to read, ordered dinner for patient, offered toiletries.
--- NOTE | 2022-04-18 19:47 | NUR.NOTE ---
Nursing Note: Pt sitting up in bed reading book, denies needing anything at this time
--- NOTE | 2022-04-18 22:00 | NUR.NOTE ---
Nursing Note: In room, reading and resting. No concerns noted at this time
--- NOTE | 2022-04-19 00:19 | NUR.NOTE ---
Nursing Note:Pt sleeping on side covered with blanket. No needs noted at this time
--- NOTE | 2022-04-19 03:53 | NUR.NOTE ---
Nursing Note: Patient sleeping in bed on his side and no needs are noted at this time.
--- NOTE | 2022-04-19 06:40 | NUR.NOTE ---
Nursing Note: Patient up out of room to use the restroom. Grabbed a cupof water on the way back. Denies the need for anything else at this time.
[2022-04-19 11:39] VITALS: BP 127/90; PULSE 80; RESP 18; TEMP 36.7; O2SAT 99
--- NOTE | 2022-04-19 12:20 | MHPN_ITS ---
Date of service: 04/19/22 Time of Service: 12:44 PHQ-9 Over the last 2 weeks, how often have you been bothered by any of the following problems? 1. Little interest or pleasure in doing things: nearly every day 2. Feeling down, depressed, or hopeless: more than half the days 3. Trouble falling or staying asleep, or sleeping too much: nearly every day 4. Feeling tired or having little energy: more than half the days 5. Poor appetite or overeating: nearly every day (Ct reports he doesn't usually eat more than once a day.) 6. Feeling bad about yourself - or that you are a failure or have let yourself and your family down: nearly every day 7. Trouble concentrating on things, such as reading the newspaper or watching television: more than half the days 8. Moving or speaking so slowly that other people could have noticed? - Or the opposite - being so fidgety or restless that you have been moving around a lot more than usual: several days 9. Thoughts that you would be better off or of hurting yourself in some way: more than half the days Total score: 21 If you checked off any problems, how difficult have these problems made it for you to do your work, take care of things at home, or get along with other people?: very difficult PHQ-9 Results: Positive Source: Developed by Drs. Alvaro Gandhi, Loly Acuña, Narayan Villatoro and colleagues, with an educational ryland from [employer]. Suicide Severity Rate CSSRS Have you wished you were or wished you could go to sleep and not wake up?: Yes Have you actually had any thoughts of killing yourself?: Yes CSSRS2 Have you been thinking about how you might do this?: Yes Have you had these thoughts and had some intention of acting on them?: No Have you started to work out or worked out the details of how to kill yourself? Do you intend to carry out this plan?: No CSSRS3 Have you ever done anything, started to do anything or prepared to do anything to end your life?: Yes CSSRS4 Was this within the past three months?: No Screening Score Total Score: 6 Screening: Positive Mental Health Emergency Note Release [facility] release signed:: Yes Reason for Visit Ct presented to the ED due to a decline in mental state, increased alcohol dependence & SI. Blayne reports he would like to access mental health services. This is a reassessment of the client face to face. In the last 2 weeks has the pt presented for ES prior to today?: Yes, presented at [facility] ED Client Information Client is: Adult Outpatient Well Housed: Yes Non Suicidal Self Injury Current: No History: No Safety Risk/Harm to Self or Others Current Ideation to Harm Self or Others: No Risk: Does risk to harm exist?: No Risk: Low Risk Duty to warn indicated: No Asssessment/Mental Status Appearance: Poor hygiene Attitude: Cooperative Behavior: Repetitive movements Speech: Normal Affect: Cogruent with mood Mood: Stressed Thought process: Racing and Circumstational Hallucinations: No Delusions: No Attention: Wandering Perception: Not impaired Orientation: Fully orientated Memory: Intact Insight: Fair Judgement: Fair Neurovegetative Symptoms Sleep: Decrease Appetitie: Increase Interests: No change Energy: No change Libido: Not applicable Substance Use: ETOH dependence Do you use nicotine?: No Have you used substances in the last 7 days?: yes, ETOH Additional Issues: Assaultive/Threatening Behavior: No Medical Concerns: No Client engaged in active self harm w/weapon: No Threatening to run away: No Child reported abuse/neglect: No Voluntarily presenting for services: Yes Domestic violence is a concern: No Extreme Psychosis or extreme behavior is present: No Impression Client is a 41 year old, single, male who lives independently in a cabin in the [facility]. Client reports that he drinks heavily daily and that he is struggling with his mental health. Client stated that he has issues with his anger, social settings, poor sleep and appetite (limited food options as well noting primarily cheese sandwiches) He has been involved with the [facility] and was encouraged to continue with them. He previously had been seeing Emi Carpio at [facility] through his PCP however he stopped seeing her. He reported today again however, that he wanted to start seeing her again. He reported that when he was at [facility] he felt is was unhelpful because he felt he was put on medications and pushed out the door. Client today still presents with rapid thoughts that appear to be circumstantial as well as repetitive to this clinician's lasts assessments over the past few days. It appeared as if he is trying to convince himself more than this clinician that he is in a good head space to return home. This clinician informed him that he needs to make that decision and he chose to go home on the safety plan put in place with MELISSA Saleh on Wednesday. Client reported he has not eaten today and did not ask for any food either. Client plans to set up appointment with Emi, and see if he can get more frequent appointments with his therapist as reconnect with the [facility] in [place]. Resources Rejemima reviewed and given:: [phone] and Community therapist Plan/Disposition Recommended Disposition: PCP/Office visit. Plan: Client to discharge back home today on Proactive Safety Plan. Person reported agreement to plan: Yes Reports/communication Outcome discussed with: ED/Personnel
== END 2022-04-19 12:10 | disposition home or self-care (01) ==
PROVIDERS: Emergency Provider Emergency Medicine; PCP Nurse Practitioner Family
DX: F10.129 Alcohol abuse with intoxication, unspecified (principal); F32.A Depression, unspecified; Y90.9 Presence of alcohol in blood, level not specified
CPT/HCPCS: 99285; 99284